=== PATIENT | female | born 1995 | race Caucasian/White ===

== ENCOUNTER 2017-11-23 18:55 | Emergency (ER) | payer OTHER ==
[~2017-11-23] VITALS: Ht 160 cm; Wt 61.8 kg
[~2017-11-23 18:55] MED LIST: NAPR-58 PO; NOCURR; SULF-168 PO; SUMA25TA9 PO
[2017-11-23 20:32] VITALS: BP 130/109
== END 2017-11-23 20:45 | disposition home or self-care (01) ==
LOC: EMS 18:56
DX: N92.0 Excessive and frequent menstruation with regular cycle (principal); N93.8 Other specified abnormal uterine and vaginal bleeding; Z88.0 Allergy status to penicillin
CPT/HCPCS: 99283

== ENCOUNTER 2018-08-26 02:40 | Emergency (ER) | payer OTHER ==
[~2018-08-26] VITALS: Ht 162.6 cm; Wt 61.4 kg
[~2018-08-26 02:40] MED LIST changes: +NAPR-1025 PO; -NAPR-58 PO; -NOCURR; -SULF-168 PO
[2018-08-26 03:32] LABS: APPEARANCE,URINE CLEAR (CLEAR); BILIRUBIN,URINE NEGATIVE (NEGATIVE); GLUCOSE, URINE (UA) NEGATIVE (NEGATIVE); KETONES,URINE NEGATIVE (NEGATIVE); LEUKOCYTE ESTERASE ,URINE NEGATIVE (NEGATIVE); NITRATE,URINE NEGATIVE (NEGATIVE); OCCULT BLOOD,URINE NEGATIVE (NEGATIVE); PROTEIN,URINE NEGATIVE (NEGATIVE); UROBILINOGEN,URINE 0.2 mg/dL (<=1.0)
[2018-08-26 03:36] LABS: BASOPHILS % (AUTO) 0.4 % (0.0-2.0); EOSINOPHILS % (AUTO) 0.3 % (1.0-6.0); HEMATOCRIT 43.8 % (36-46); HEMOGLOBIN 14.3 g/dL (12.0-16.0); LYMPHOCYTES # (AUTO) 2.6 K/uL (1.0-4.8); LYMPHOCYTES % (AUTO) 31.1 % (22.0-44.0); MEAN CORPUSCULAR HEMOGLOBIN 30.4 pg (26.0-34.0); MEAN CORPUSCULAR HGB CONC 32.6 G/dL (31.0-37.0); MEAN CORPUSCULAR VOLUME 93 fL (80-100); MONOCYTES # (AUTO) 0.4 K/uL (0.1-1.0); MONOCYTES % (AUTO) 5.3 % (2.0-9.0); NEUTROPHILS # (AUTO) 5.2 K/uL (1.8-7.7); NEUTROPHILS % (AUTO) 62.9 % (40.0-70.0); PLATELET COUNT (AUTO) 294 K/uL (150-450); RED BLOOD CELL COUNT(AUTO) 4.69 MIL/uL (4.00-5.20); RED CELL DISTRIBUTION WIDTH 13.8 % (11.5-14.5)
[2018-08-26 03:46] LABS: ANION GAP 11 mmol/L (8-16); CARBON DIOXIDE 24 mmol/L (22-29); CHLORIDE 109 mmol/L (98-107); CREATININE 0.72 mg/dL (0.60-1.30); GLOMERULAR FILTR. RATE CALC > 60 mL/min (>60); GLUCOSE,RANDOM 106 mg/dL (70-110); POTASSIUM 3.9 mmol/L (3.5-5.1); SODIUM SERUM 144 mmol/L (136-145); UREA NITROGEN, BLOOD 4 mg/dL (7-18)
[2018-08-26 03:58] LABS: ALANINE AMINOTRANSFERASE 32 U/L (12-78); ALBUMIN 4.1 g/dL (3.4-5.0); ALKALINE PHOSPHATASE 122 U/L (46-116); ASPARTATE AMINOTRANSFERASE 23 U/L (15-37); BILIRUBIN,TOTAL 0.2 mg/dL (0.1-1.0); HCG,QUANTITATIVE < 1 mIU/mL (0-6); LIPASE 106 U/L (73-393); TOTAL PROTEIN, SERUM 8.1 g/dL (6.4-8.2)
[2018-08-26 05:51] VITALS: BP 118/79
== END 2018-08-26 06:10 | disposition home or self-care (01) ==
LOC: EMS 02:42
DX: K59.00 Constipation, unspecified (principal); G43.909 Migraine, unspecified, not intractable, without status migrainosus
CPT/HCPCS: 74176

== ENCOUNTER 2021-01-11 15:57 | Emergency (ER) | payer OTHER ==
[~2021-01-11] VITALS: Ht 160 cm; Wt 63.6 kg
[2021-01-11] MEDS ORDERED: BACLOFEN 10 MG TABLET PO ONE (16:45)
[2021-01-11] MEDS ORDERED: ACETAMINOPHEN/CODEINE 300-30 MG TABLET PO ONE (16:45)
[2021-01-11] MEDS ORDERED: KETOROLAC TROMETHAMINE 60 MG/2 ML VIAL IM ONE (16:45)
[2021-01-11] MEDS ORDERED: ONDANSETRON HCL 4 MG/2 ML VIAL IM ONE (17:45)
[2021-01-11] MEDS ORDERED: HYDROmorphone 2 MG/ML VIAL IM ONE (17:45)
[2021-01-11 19:15] VITALS: BP 122/65
== END 2021-01-11 20:17 | disposition home or self-care (01) ==
LOC: EMS 15:59
DX: S39.012A Strain of muscle, fascia and tendon of lower back, initial encounter (principal); Z88.0 Allergy status to penicillin; X58.XXXA Exposure to other specified factors, initial encounter; Y93.89 Activity, other specified; Y92.89 Other specified places as the place of occurrence of the external cause; Y99.8 Other external cause status
CPT/HCPCS: 72100; 81025; 96372; 99284; J1170; J1885; J2405